=== PATIENT | female | born 1990 | race Hispanic/Latino ===

== ENCOUNTER 2021-02-24 17:39 | Emergency (ER) | payer OTHER, SELFPAY ==
--- OUTSIDE RECORDS SUMMARY | 2021-02-24 17:42 | XMS REPORT | Continuity of Care Document ---
:1990 Author Organization [facility] t Address [address] [place] [address] [place] [id number] Care Team Providers Name Role Phone GAYLE GALVAN Attending Clinician Unavailable Problems This patient has no known problems. Allergies, Adverse Reactions, Alerts Allergy Allergy Status Severity Reaction(s) Onset Inactive Treating Comm ents Source Name Type Date Date Clinician NO KNOWN Drug Active [facility] ALLERGIE Class [facility] Medications This patient has no known medications. Procedures This patient has no known procedures. Encounters Start End Encounter Admission Attending Care Care Encounter Source Date/Time Date/Time Type Type Clinicians Facility Department ID 2020-01-30 2020-01-30 Outpatient R [facility] [id number] [facility] 09:20:00 09:20:00 [id number] [facility] 2020-01-30 2020-01-30 Outpatient R [facility] [id number] [facility] 09:20:00 09:20:00 GAYLE [facility] Results This patient has no known results.
[2021-02-24 19:10] LABS: SARS-COV-2 RT PCR NEGATIVE (NEGATIVE)
--- NOTE | 2021-02-24 19:53 | ER ---
Nurse's Notes [facility] Name: Matt Chang Age: 30 yrs Sex: Female : 1990 Arrival Date: 02/24/2021 Time: 17:40 Bed Waiting Private MD: Diagnosis: Viral Syndrome Presentation: 02/24 17:41 Chief complaint: Patient states: PT COMPLAINS OF SEVERE HEADACHE STARTING TODAY. iw 17:41 Method Of Arrival: Ambulatory iw 17:41 Acuity: XAVI 4 iw Triage Assessment: 17:42 Headache History: Denies prior headaches. General: Appears in no apparent distress. iw Historical: - Allergies: 17:44 No Known Allergies; iw Vital Signs: 17:42 BP 110 / 75; Pulse 71; Resp 16; Temp 98.2; Pulse Ox 98% on R/A; Weight 45.81 kg; Height iw 4 ft. 11 in. (149.86 cm); Pain 6/10; 17:42 Body Mass Index 20.40 (45.81 kg, 149.86 cm) iw ED Course: 17:40 Patient arrived in ED. mr 17:42 Triage completed. iw 18:47 COVID-19/FLU A+B (Document "Date of Onset" if Symptomatic) Sent. [facility] 19:18 [facility] 19:18 Franck Jon MD is Attending Physician. erin Administered Medications: 19:57 Not Given (Patient Refused): NS 0.9% 1000 ml IV at 1 bolus Per protocol; 1000 mL bolus iw 19:57 Not Given (Patient Refused): Reglan (metoCLOPramide) 20 mg IVP once; put in bolus iw 19:57 Not Given (Patient Refused): Tylenol 1000 mg PO once iw 19:57 Not Given (Patient Refused): Ondansetron 4 mg PO once iw Outcome: 19:52 Discharge ordered by . erin 19:58 Discharged to home ambulatory, with family. iw 19:58 Condition: good 19:58 Discharge instructions given to patient, Instructed on discharge instructions, follow up and referral plans. medication usage, Demonstrated understanding of instructions, follow-up care, medications, Prescriptions given X 1. 19:58 Patient left the ED. iw Signatures: Remi Alexander PA PA jmm Rivera, Mary mr Williams, Irene, RN RN roland Chang, Eva 3
--- NOTE | 2021-02-24 19:54 | EDPHYS ---
Physician Documentation [facility] Name: Matt Chang Age: 30 yrs Sex: Female : 1990 Arrival Date: 02/24/2021 Time: 17:40 Bed Waiting Private MD: ED Physician Franck Jon HPI: 02/24 17:45 This 30 yrs old Female presents to ER via Ambulatory with complaints of jmm Headache, Vomiting. 17:45 The patient complains of pain to the forehead, right eye, nose, left eye, right gnosticism jmm and left gnosticism. Onset: The symptoms/episode began/occurred gradually, today. Associated signs and symptoms: Pertinent positives: fever, vomiting. The symptoms are alleviated by nothing. the symptoms are aggravated by nothing. It is unknown whether or not the patient has had similar symptoms in the past. Historical: - Allergies: 17:44 No Known Allergies; iw ROS: 17:45 Constitutional: Positive for body aches, chills. [facility] 17:45 Respiratory: Positive for cough. 17:45 All other systems are negative. Exam: 17:45 Constitutional: This is a well developed, well nourished patient who is awake, alert, jmm and in no acute distress. Head/Face: atraumatic. Eyes: EOMI, no conjunctival erythema appreciated ENT: Moist Mucus Membranes Neck: Trachea midline, Supple Chest/axilla: Normal chest wall appearance and motion. Cardiovascular: Regular rate and rhythm. No edema appreciated Respiratory: Normal respirations, no respiratory distress appreciated Abdomen/GI: Non distended, soft Back: Normal ROM Skin: General appearance color normal MS/ Extremity: Moves all extremities, no obvious deformities appreciated, no edema noted to the lower extremities Neuro: Awake and alert, normal gait Psych: Behavior is normal, Mood is normal, Patient is cooperative and pleasant Vital Signs: 17:42 BP 110 / 75; Pulse 71; Resp 16; Temp 98.2; Pulse Ox 98% on R/A; Weight 45.81 kg; Height iw 4 ft. 11 in. (149.86 cm); Pain 6/10; 17:42 Body Mass Index 20.40 (45.81 kg, 149.86 cm) iw MDM: 19:41 Patient medically screened. [facility] 19:52 Data reviewed: vital signs, nurses notes. Counseling: I had a detailed discussion with [facility] the patient and/or guardian regarding: the historical points, exam findings, and any diagnostic results supporting the discharge/admit diagnosis, lab results, the need for outpatient follow up, to return to the emergency department if symptoms worsen or persist or if there are any questions or concerns that arise at home. Refusal of service: The patient/guardian displays adequate decision making capability and despite a detailed discussion of alternatives, benefits, risks, and consequences refuses: CT Scan. 02/24 17:45 Order name: COVID-19/FLU A+B (Document "Date of Onset" if Symptomatic) iw 02/24 17:45 Order name: COVID-19/FLU A+B; Complete Time: 19:18 EDMS Administered Medications: 19:57 Not Given (Patient Refused): NS 0.9% 1000 ml IV at 1 bolus Per protocol; 1000 mL bolus iw 19:57 Not Given (Patient Refused): Reglan (metoCLOPramide) 20 mg IVP once; put in bolus iw 19:57 Not Given (Patient Refused): Tylenol 1000 mg PO once iw 19:57 Not Given (Patient Refused): Ondansetron 4 mg PO once iw Disposition: 20:40 Co-signature as Attending Physician, Franck Jon MD. [email or web address] Disposition Summary: 02/24/21 19:52 Discharge Ordered Location: Home [facility] Condition: Stable [facility] Diagnosis - Viral Syndrome [facility] Followup: [facility] - With: Private Physician - When: 2 - 3 days - Reason: Recheck today's complaints, Continuance of care, Re-evaluation by your physician Discharge Instructions: - Discharge Summary Sheet [facility] - General Headache Without Cause [facility] Forms: - Medication Reconciliation Form [facility] - Thank You Letter [facility] - Work release form [facility] - Antibiotic Education [facility] - Prescription Opioid Use [facility] Prescriptions: - ondansetron 4 mg Oral tablet,disintegrating - take 1 tablet by ORAL route every 8 hours As needed; 30 tablet; Refills: 0, [facility] Product Selection Permitted Signatures: Dispatcher [employer] EDMS Remi Alexander PA PA jmm Williams, Irene, GABRIEL RN Franck Cabello MD MD [email or web address] Corrections: (The following items were deleted from the chart) 19:57 19:19 IV Saline Lock ordered. [facility]
[2021-02-24 20:05] VITALS: BP 110/75; TEMP 98.2; O2SAT 98
== END 2021-02-24 19:58 | disposition home or self-care (01) ==
LOC: ER 17:39
DX: B34.9 Viral infection, unspecified (principal); Z20.822 Contact with and (suspected) exposure to COVID-19
CPT/HCPCS: 0240U; 99283

== ENCOUNTER 2021-09-05 14:15 | Emergency (ER) | payer SELFPAY ==
[2021-09-05] MEDS ORDERED: ONDANSETRON 4 MG (ODT) TAB ONE (14:35)
[2021-09-05] MEDS ORDERED: ACETAMINOPHEN 500 MG TAB ONE (14:36)
[2021-09-05] MEDS ORDERED: KETOROLAC 30 MG/ML INJ ONE (14:54)
[2021-09-05] MEDS ORDERED: ONDANSETRON 4 MG/2 ML VIAL ONE (14:54)
[2021-09-05] MEDS ORDERED: FAMOTIDINE 20 MG/2 ML VIAL IV ONE (14:55)
[2021-09-05] MEDS ORDERED: NA CHLORIDE 0.9% 1,000 ML ONE (14:55)
[2021-09-05 15:07] LABS: Urine Blood Negative (Negative); Urine Glucose Negative (Negative); Urine Protein 1+ (Negative); Urine pH 8.5 (5.0-7.0)
[2021-09-05 15:08] LABS: Absolute Lymphocytes (CBC) 0.2 K/uL (0.7-4.9); Hematocrit 39.2 % (36.0-45.0); Lymphocytes % 3.4 % (15.3-44.8); MCV 89.6 fL (80-100); MPV 9.6 fL (7.6-11.3); RBC Red Blood Cell Count 4.38 M/uL (3.86-4.86)
[2021-09-05 15:24] LABS: Albumin 3.9 g/dL (3.4-5.0); Bilirubin Total 0.3 mg/dL (0.2-1.0); Potassium 3.5 mmol/L (3.5-5.1)
[2021-09-05] MEDS ORDERED: METOCLOPRAMIDE 10 MG/2mL INJ ONE (16:32)
[2021-09-05 16:44] LABS: Urine Bacteria <20 /HPF (<20)
[2021-09-05 16:45] LABS: Urine Mucus 3+ /HPF (None Seen); Urine RBC <5 /HPF (None Seen)
--- NOTE | 2021-09-05 16:58 | RAD REPORT ---
EXAM DESCRIPTION: CTAbdomen Pelvis W Contrast - 09/05/2021 4:43 pm CLINICAL HISTORY: Abdominal pain. Nausea/vomiting COMPARISON: Abdomen Pelvis W Contrast dated 08/07/2015 TECHNIQUE: Biphasic CT imaging of the abdomen and pelvis was performed with 100 ml non-ionic IV cont rast. All CT scans are performed using dose optimization technique as appropriate and may include automated exposure control or mA/KV adjustment according to patient size. FINDINGS: The lung bases are clear. The liver, spleen, pancreas, adrenal glands and kidneys are within normal limits. No bowel obstruction, free air, free fluid or abscess. The appendix is normal. No evidence of signi ficant lymphadenopathy. No suspicious bony findings. IUD is present in the uterus. IMPRESSION: No acute intra-abdominal or pelvic finding.
--- NOTE | 2021-09-05 17:25 | EDPHYS ---
Physician Documentation [facility] Name: Matt Chang Age: 30 yrs Sex: Female : 1990 Arrival Date: 09/05/2021 Time: 14:16 Bed 11 Private MD: ED Physician Jorge Scott HPI: 09/05 14:33 This 30 yrs old Female presents to ER via Ambulatory with complaints of Fever. cp 14:33 The patient reports fever, not measured (subjective). Onset: The symptoms/episode cp began/occurred this morning. 14:33 Associated signs and symptoms: Pertinent positives: backache, headache, nausea, cp vomiting, body aches, Pertinent negatives: altered mental status, cough, diarrhea. Severity of symptoms: in the emergency department the symptoms are unchanged despite home interventions. CLIENT SERVICES ADMINISTRATOR: 14:44 LMP N/A - control method ld1 Historical: - Allergies: 14:44 No Known Allergies; ld1 - Home Meds: 14:44 None [Active]; ld1 - PMHx: 14:44 None; ld1 - PSHx: 14:44 None; ld1 - Immunization history:: Adult Immunizations up to date, Client reports receiving the 2nd dose of the Covid vaccine. - Social history:: Smoking status: Patient denies any tobacco usage or history of. Patient/guardian denies using alcohol. ROS: 14:40 Constitutional: Positive for body aches, Negative for fever. cp 14:40 Eyes: Negative for injury, pain, redness, and discharge. cp 14:40 ENT: Negative for drainage from ear(s), ear pain, sore throat, difficulty swallowing, difficulty handling secretions. 14:40 Cardiovascular: Negative for chest pain. 14:40 Respiratory: Negative for cough, shortness of breath, wheezing. 14:40 Abdomen/GI: Positive for abdominal pain, nausea and vomiting, Negative for diarrhea, constipation, hematemesis. 14:40 Skin: Negative for rash. 14:40 Neuro: Positive for headache, weakness, Negative for altered mental status. 14:40 All other systems are negative. Exam: 14:43 Constitutional: The patient appears in no acute distress, alert, awake, non-toxic, well cp developed, well nourished, uncomfortable. 14:43 Head/Face: Normocephalic, atraumatic. cp 14:43 Eyes: Periorbital structures: appear normal, Pupils: equal, round, and reactive to light and accomodation, Extraocular movements: intact throughout, Conjunctiva: normal, no exudate, no injection, Sclera: no appreciated abnormality, Lids and lashes: appear normal, bilaterally. 14:43 ENT: External ear(s): are unremarkable, Nose: is normal, Mouth: Lips: moist, Oral mucosa: pink and intact, moist, Posterior pharynx: Airway: no evidence of obstruction, patent. 14:43 Neck: ROM/movement: is normal, is supple, without pain, no range of motions limitations. 14:43 Chest/axilla: Inspection: normal, Palpation: is normal, no crepitus, no tenderness. 14:43 Cardiovascular: Rate: normal, Rhythm: regular, Edema: is not appreciated. 14:43 Respiratory: the patient does not display signs of respiratory distress, Respirations: normal, no use of accessory muscles, no retractions, labored breathing, is not present, Breath sounds: are clear throughout, no decreased breath sounds, no stridor, no wheezing. 14:43 Abdomen/GI: Inspection: abdomen appears normal, Bowel sounds: active, all quadrants, Palpation: soft, in all quadrants, mild abdominal tenderness, in all quadrants, rebound tenderness, is not appreciated, voluntary guarding, is not appreciated, involuntary guarding, is not appreciated. 14:43 Back: CVA tenderness, is noted bilaterally. 14:43 Skin: no rash present. 14:43 Neuro: Orientation: to person, place \\T\\ time. Mentation: is normal, Motor: moves all fours, strength is normal, Sensation: is normal. Vital Signs: 14:36 BP 109 / 74; Pulse 94; Resp 18; Temp 99.5(O); Pulse Ox 98% on R/A; Weight 49.9 kg; ld1 Height 4 ft. 9 in. (144.78 cm); Pain 8/10; 16:29 BP 104 / 68; Pulse 94; Resp 18; Pulse Ox 98% on R/A; ld1 14:36 Body Mass Index 23.80 (49.90 kg, 144.78 cm) ld1 MDM: 14:28 Patient medically screened. cp 15:00 Differential diagnosis: viral Infection, bacterial infection, URI, bronchitis, cp pneumonia UTI, gastroenteritis, meningitis. 17:24 Data reviewed: vital signs, nurses notes, lab test result(s), radiologic studies, CT cp scan. 17:24 Counseling: I had a detailed discussion with the patient and/or guardian regarding: the cp historical points, exam findings, and any diagnostic results supporting the discharge/admit diagnosis, lab results, radiology results, to return to the emergency department if symptoms worsen or persist or if there are any questions or concerns that arise at home. Response to treatment: the patient's symptoms have markedly improved after treatment, and as a result, I will discharge patient. 09/05 14:27 Order name: COVID-19 SARS RT PCR (Document "Date of Onset" if Symptomatic); Complete ld1 Time: 16:50 09/05 16:50 Interpretation: Reviewed. 09/05 14:27 Order name: Flu; Complete Time: 15:43 ld1 09/05 15:44 Interpretation: Reviewed. 09/05 14:38 Order name: CBC with Diff; Complete Time: 15:43 09/05 15:43 Interpretation: Normal except: MCV 89.6; PLT 124; MARK% 86.9; LYM% 3.4; LYMA 0.2. 09/05 14:38 Order name: CMP; Complete Time: 15:43 09/05 15:43 Interpretation: Normal except: NA 135; AST 84; ALT 100; GLOB 4.1; A/G 1.0. 09/05 14:38 Order name: Lipase; Complete Time: 15:43 09/05 15:44 Interpretation: Abnormal: LIP 65. 09/05 14:38 Order name: Urine Microscopic Only; Complete Time: 16:50 cp 09/05 16:50 Interpretation: Normal except: MUCUS 3+. 09/05 15:08 Order name: Urine Dipstick-Ancillary; Complete Time: 15:43 EDMS 09/05 15:34 Order name: Urine --Ancillary (enter results); Complete Time: 16:50 eb 09/05 15:45 Order name: CT Abd/Pelvis - IV Contrast Only; Complete Time: 17:02 cp 09/05 17:02 Interpretation: Report reviewed. 09/05 14:38 Order name: IV Saline Lock; Complete Time: 14:46 09/05 14:38 Order name: Labs collected and sent; Complete Time: 15:03 cp 09/05 14:38 Order name: Urine Dipstick-Ancillary (obtain specimen); Complete Time: 14:46 cp 09/05 14:38 Order name: Urine Test (obtain specimen); Complete Time: 15:03 cp 09/05 17:03 Order name: PO challenge; Complete Time: 17:04 cp Administered Medications: 14:27 CANCELLED (Other Intervention Used): Tylenol 15 mg/kg Feeding Tube once; not to exceed ld1 1,000 milligrams 14:35 Drug: Ondansetron 4 mg Route: PO; ld1 14:35 Drug: Tylenol 1000 mg Route: PO; ld1 15:02 Drug: Pepcid (famotidine) 20 mg Route: IVP; Site: right upper arm; ld1 15:02 Drug: Ketorolac 15 mg Route: IVP; Site: right upper arm; ld1 15:02 Drug: NS 0.9% 500 ml Route: IV; Rate: bolus; Site: right upper arm; ld1 15:02 Drug: NS 0.9% 500 ml Route: IV; Rate: 125 ml/hr; Site: right upper arm; ld1 16:28 Drug: Reglan (metoCLOPramide) 10 mg Route: IVP; Site: right upper arm; ld1 Disposition: 18:02 Attestation: The patient's history, exam findings, diagnostics, and a summary of any [facility] interventions or procedures was reviewed in detail with Servando العراقي. Disposition Summary: 09/05/21 17:24 Discharge Ordered Location: Home cp Problem: new cp Symptoms: have improved cp Condition: Stable cp Diagnosis - Nausea with vomiting, unspecified cp - SARS-associated coronavirus as the cause of diseases classified elsewhere cp Followup: cp - With: Private Physician - When: 2 - 3 days - Reason: Worsening of condition Discharge Instructions: - Discharge Summary Sheet cp - Nausea and Vomiting, Adult cp - Aspirin and Your Heart cp - Form - Excuse from Work, School, or Physical Activity cp - COVID-19 cp - COVID-19: What Your Test Results Mean - [facility] cp - Things to Know about the COVID-19 Pandemic - [facility] cp - 10 Things You Can Do to Manage Your COVID-19 Symptoms at Home - [facility] cp - COVID-19: Quarantine vs. Isolation - [facility] cp - Prevent the Spread of COVID-19 if You Are Sick - [facility] cp Forms: - Medication Reconciliation Form cp - Work release form iw - Thank You Letter cp - Antibiotic Education cp - Prescription Opioid Use cp Prescriptions: - Zofran 4 mg Oral Tablet - take 1 tablet by ORAL route every 12 hours As needed; 20 tablet; Refills: 0, cp Product Selection Permitted - Ibuprofen 800 mg Oral Tablet - take 0.5 tablet by ORAL route every 8 hours As needed take with food; 30 cp tablet; Refills: 0, Product Selection Permitted Signatures: Dispatcher [employer] EDMS Servando Castellano PA PA cp Carmen Little RN RN ld1 Jorge Scott MD MD [email or web address] Corrections: (The following items were deleted from the chart) 14:27 14:27 Tylenol 15 mg/kg Feeding Tube once; not to exceed 1,000 milligrams ordered. ld1 ld1 15:43 15:43 Normal except: NA 135. cp cp 09/06 14:42 09/05 14:33 Associated signs and symptoms: Pertinent positives: backache, headache, cp nausea, body aches, Pertinent negatives: altered mental status, cough, diarrhea, cp
--- NOTE | 2021-09-05 17:25 | ER ---
Nurse's Notes [facility] Name: Matt Chang Age: 30 yrs Sex: Female : 1990 Arrival Date: 09/05/2021 Time: 14:16 Bed 11 Private MD: Diagnosis: Nausea with vomiting, unspecified;SARS-associated coronavirus as the cause of diseases classified elsewhere Presentation: 09/05 14:36 Chief complaint: Patient states: Body aches, fever, N/V since 0600 this morning. Pt ld1 reports taking tylenol at 0630am. Coronavirus screen: Client presents with at least one sign or symptom that may indicate coronavirus-19. Standard/surgical mask placed on the client. Ebola Screen: No symptoms or risks identified at this time. Initial Sepsis Screen: Does the patient meet any 2 criteria? No. Patient's initial sepsis screen is negative. Does the patient have a suspected source of infection? No. Patient's initial sepsis screen is negative. Risk Assessment: Do you want to hurt yourself or someone else? Patient reports no desire to harm self or others. Onset of symptoms was September 05, 2021. 14:36 Method Of Arrival: Ambulatory ld1 14:36 Acuity: XAVI 3 ld1 Triage Assessment: 14:44 General: Appears in no apparent distress. uncomfortable, Behavior is calm, cooperative, ld1 appropriate for age. Pain: Complains of pain in all overy body Pain does not radiate. Pain currently is 10 out of 10 on a pain scale. EENT: No signs and/or symptoms were reported regarding the EENT system. Neuro: Level of Consciousness is awake, alert, obeys commands, Oriented to person, place, time, situation. Cardiovascular: Capillary refill < 3 seconds Patient's skin is warm and dry. Respiratory: Airway is patent Respiratory effort is even, unlabored. GI: Abdomen is flat, non-distended, Reports nausea, vomiting. : No signs and/or symptoms were reported regarding the genitourinary system. Derm: No signs and/or symptoms reported regarding the dermatologic system. Musculoskeletal: No signs and/or symptoms reported regarding the musculoskeletal system. MANAGER SECONDARY: 14:44 LMP N/A - control method ld1 Historical: - Allergies: 14:44 No Known Allergies; ld1 - Home Meds: 14:44 None [Active]; ld1 - PMHx: 14:44 None; ld1 - PSHx: 14:44 None; ld1 - Immunization history:: Adult Immunizations up to date, Client reports receiving the 2nd dose of the Covid vaccine. - Social history:: Smoking status: Patient denies any tobacco usage or history of. Patient/guardian denies using alcohol. Screenin:45 Abuse screen: Denies threats or abuse. Denies injuries from another. Nutritional ld1 screening: No deficits noted. Tuberculosis screening: No symptoms or risk factors identified. Fall Risk None identified. Assessment: 14:45 Reassessment: See triage assessment. ld1 Vital Signs: 14:36 BP 109 / 74; Pulse 94; Resp 18; Temp 99.5(O); Pulse Ox 98% on R/A; Weight 49.9 kg; ld1 Height 4 ft. 9 in. (144.78 cm); Pain 8/10; 16:29 BP 104 / 68; Pulse 94; Resp 18; Pulse Ox 98% on R/A; ld1 14:36 Body Mass Index 23.80 (49.90 kg, 144.78 cm) ld1 ED Course: 14:16 Patient arrived in ED. am2 14:26 Carmen Little, GABRIEL is Primary Nurse. ld1 14:27 Servando Castellano PA is PHCP. cp 14:27 Jorge Scott MD is Attending Physician. cp 14:35 Flu Sent. ld1 14:35 COVID-19 SARS RT PCR (Document "Date of Onset" if Symptomatic) Sent. ld1 14:44 Triage completed. ld1 14:44 Arm band placed on right wrist. ld1 14:45 No provider procedures requiring assistance completed. ld1 14:45 Patient has correct armband on for positive identification. Placed in gown. Bed in low ld1 position. Call light in reach. Side rails up X2. monitor car operator on. Pulse ox on. NIBP on. Door closed. Noise minimized. Warm blanket given. 15:03 Urine Microscopic Only Sent. ld1 15:03 Inserted saline lock: 20 gauge in right upper arm, using aseptic technique. Blood ld1 collected. 16:44 CT Abd/Pelvis - IV Contrast Only In Process Unspecified. EDMS 17:37 IV discontinued, intact, bleeding controlled, No redness/swelling at site. ld1 Administered Medications: 14:27 CANCELLED (Other Intervention Used): Tylenol 15 mg/kg Feeding Tube once; not to exceed ld1 1,000 milligrams 14:35 Drug: Ondansetron 4 mg Route: PO; ld1 14:35 Drug: Tylenol 1000 mg Route: PO; ld1 15:02 Drug: Pepcid (famotidine) 20 mg Route: IVP; Site: right upper arm; ld1 15:02 Drug: Ketorolac 15 mg Route: IVP; Site: right upper arm; ld1 15:02 Drug: NS 0.9% 500 ml Route: IV; Rate: bolus; Site: right upper arm; ld1 15:02 Drug: NS 0.9% 500 ml Route: IV; Rate: 125 ml/hr; Site: right upper arm; ld1 16:28 Drug: Reglan (metoCLOPramide) 10 mg Route: IVP; Site: right upper arm; ld1 Medication: 14:45 VIS not applicable for this client. ld1 Outcome: 17:24 Discharge ordered by . natty 17:37 Discharged to home ambulatory, with family. ld1 17:37 Condition: improved 17:37 Discharge instructions given to patient, family, Instructed on discharge instructions, follow up and referral plans. medication usage, Demonstrated understanding of instructions, follow-up care, medications, Prescriptions given X 2. 17:38 Patient left the ED. ld1 Signatures: Dispatcher [employer] EDMS Servando Castellano PA PA cp Moreno, Amanda Carmen Burroughs, RN RN ld1
[2021-09-05 18:05] VITALS: TEMP 99.5; O2SAT 98
[2021-09-05 18:11] VITALS: BP 104/68
== END 2021-09-05 17:38 | disposition home or self-care (01) ==
LOC: ER 14:15
DX: U07.1 COVID-19 (principal)
CPT/HCPCS: 36415; 74177; 80053; 81003; 81015; 81025; 83690; 85025; 87804; 96374; 96375; 99284; J2405; J2765; J3490; J7030; Q0162; Q9967; U0003

== ENCOUNTER 2024-02-11 19:13 | Emergency (ER) | payer SELFPAY ==
--- OUTSIDE RECORDS SUMMARY | 2024-02-11 19:16 | XMS REPORT | Continuity of Care Document ---
Author Name Unknown Address [address] [facility] th[address] Address [address] [facility] [address] [place] [address] Care Team Providers Care Auto Specialty Services Manager Name Role Phone GAYLE GALVAN Attending Clinician Unavailable Allergies, Adverse Reactions, Alerts Allergy Name Allergy Type Status Severity Reaction(s) Onset Date Inactive Date Treating Clinician Comments Source NO KNOWN ALLERGIE S Drug Class [facility] Start Date/Time End Date/Time Encounter Type Admission Type Attending Clinicians Care Facility Care Department Encounter ID Source 2023-04-30 08:43:52 2023-04-30 08:43:52 Outpatient [facility] [id number] Yahir Engel 2020-01-30 09:20:00 2020-01-30 09:20:00 Outpatient GAYLE [id number]
--- NOTE | 2024-02-11 19:40 | EDPHYS ---
Physician Documentation [facility] Name: Matt Chang Age: 33 yrs Sex: Female : 1990 Arrival Date: 02/11/2024 Time: 19:13 Bed DX3 Private MD: ED Physician Annie Martinez HPI: 02/10 19:37 This 33 yrs old Female presents to ER via Ambulatory with complaints of sp3 Toothache. 19:37 33-year-old female with no past medical history presents with toothache right side sp3 maxilla since yesterday evening. Patient states she smells of foul odor coming from that area as well. Patient does not have a regular dentist. She denies fever, headache, neck pain, chest pain, shortness of breath or any other signs or symptoms on ROS at this time.. CLERICAL SUPPORT SPECIALIST: 19:17 LMP N/A - control method, Not tm6 Historical: - Allergies: 19:19 No Known Allergies; tm6 - PMHx: 19:19 None; tm6 - PSHx: 19:19 None; tm6 - Immunization history:: Flu vaccine is up to date. - Infectious Disease History:: Denies. - Social history:: Smoking status: Patient/guardian denies using tobacco, the patient reports quitting approximately 1 years ago. ROS: 19:38 Constitutional: Negative for fever, chills, and weight loss, Eyes: Negative for injury, sp3 pain, redness, and discharge, Neck: Negative for injury, pain, and swelling, Cardiovascular: Negative for chest pain, palpitations, and edema, Respiratory: Negative for shortness of breath, cough, wheezing, and pleuritic chest pain, Abdomen/GI: Negative for abdominal pain, nausea, vomiting, diarrhea, and constipation, Back: Negative for injury and pain, MS/Extremity: Negative for injury and deformity, Skin: Negative for injury, rash, and discoloration, Neuro: Negative for headache, weakness, numbness, tingling, and seizure, Psych: Negative for depression, anxiety, suicide ideation, homicidal ideation, and hallucinations, Allergy/Immunology: Negative for hives, rash, and allergies, Endocrine: Negative for neck swelling, polydipsia, polyuria, polyphagia, and marked weight changes, 19:38 All other systems are negative, Exam: 19:38 Constitutional: This is a well developed, well nourished patient who is awake, alert, sp3 and in no acute distress. Head/Face: Normocephalic, atraumatic. Eyes: Pupils equal round and reactive to light, extra-ocular motions intact. Lids and lashes normal. Conjunctiva and sclera are non-icteric and not injected. Cornea within normal limits. Periorbital areas with no swelling, redness, or edema. Neck: Trachea midline, no thyromegaly or masses palpated, and no cervical lymphadenopathy. Supple, full range of motion without nuchal rigidity, or vertebral point tenderness. No Meningismus. Chest/axilla: Normal chest wall appearance and motion. Nontender with no deformity. No lesions are appreciated. Cardiovascular: Regular rate and rhythm with a normal S1 and S2. No gallops, murmurs, or rubs. Normal PMI, no JVD. No pulse deficits. Respiratory: Lungs have equal breath sounds bilaterally, clear to auscultation and percussion. No rales, rhonchi or wheezes noted. No increased work of breathing, no retractions or nasal flaring. Abdomen/GI: Soft, non-tender, with normal bowel sounds. No distension or tympany. No guarding or rebound. No evidence of tenderness throughout. 19:38 ENT: Poor dentition overall with marked swelling in the right maxilla at the gum and dentition.. Vital Signs: 19:17 BP 138 / 90; Pulse 61; Resp 19; Temp 99(TE); Pulse Ox 99% on R/A; MAP 104 mmHg; Weight tm6 45.36 kg; Height 4 ft. 9 in. ; Pain 9/10; 19:17 Body Mass Index 21.64 (45.36 kg, 144.78 cm) tm6 19:17 Pain Scale: Adult tm6 MDM: 19:28 Medical Screening Exam initiated sp3 19:38 Data reviewed: vital signs, nurses notes. ED course: Differential diagnosis includes to sp3 take versus dental infection versus tooth abscess. Will treat with Augmentin and [place] in the ED and discharged on NSAID and Augmentin for outpatient dentistry follow-up.. Administered Medications: 19:54 Drug: Amoxicillin-Clavulanate PO 875 mg PO once Route: PO; tm6 19:58 Follow up: Response: Medication administered at discharge. tm6 19:54 Drug: [place] PO 5 mg-325 mg 2 tabs PO once Route: PO; tm6 19:58 Follow up: Response: Medication administered at discharge. tm6 Disposition Summary: 02/11/24 19:39 Discharge Ordered Notes: Location: Home sp3 Condition: Stable sp3 Diagnosis - Dental infection, toothache sp3 Followup: sp3 - With: Private Physician - When: Upon discharge from the Emergency Department - Reason: Continuance of care Discharge Instructions: - Discharge Summary Sheet sp3 - Dental Abscess sp3 Forms: - Medication Reconciliation Form sp3 - Antibiotic Education sp3 - Prescription Opioid Use sp3 - Patient Portal Instructions sp3 - Leadership Thank You Letter sp3 - Work release form tm6 Prescriptions: - Augmentin 875-125 mg Oral Tablet - take 1 tablet ORAL route every 12 hours for 10 days; 20 tablet; Refills: 0, sp3 Product Selection Permitted - Diclofenac Sodium 75 mg Oral Tablet Sustained Release - take 1 tablet ORAL route 2 times per day; 30 tablet; Refills: 0, Product sp3 Selection Permitted Signatures: Annie Martinez MD MD sp3 Ivory Coleman RN RN tm6
--- NOTE | 2024-02-11 19:40 | ER ---
Nurse's Notes [facility] Name: Matt Chang Age: 33 yrs Sex: Female : 1990 Arrival Date: 02/11/2024 Time: 19:13 Bed DX3 Private MD: Diagnosis: Dental infection, toothache Presentation: 02/10 19:19 Chief complaint: Patient states: tooth on right top side started hurting last night, I tm6 took tylenol. This morning the pain just got worse and worse. 9/10 pain. Coronavirus screen: Client denies travel out of the [place] in the last 14 days. Ebola Screen: Patient negative for fever greater than or equal to 101.5 degrees Fahrenheit, and additional compatible Ebola Virus Disease symptoms Patient denies exposure to infectious person. Patient denies travel to an Ebola-affected area in the 21 days before illness onset. No symptoms or risks identified at this time. Initial Sepsis Screen: Does the patient meet any 2 criteria? No. Patient's initial sepsis screen is negative. Does the patient have a suspected source of infection? No. Patient's initial sepsis screen is negative. Risk Assessment: Do you want to hurt yourself or someone else? Patient reports no desire to harm self or others. Onset of symptoms was February 11, 2024. 19:19 Method Of Arrival: Ambulatory tm6 19:19 Acuity: XAVI 4 tm6 Triage Assessment: 19:19 General: Appears distressed, uncomfortable, Behavior is cooperative. Pain: Complains of tm6 pain in mouth Pain currently is 9 out of 10 on a pain scale. Quality of pain is described as aching, throbbing, Pain began 1 day ago. EENT: Reports pain in mouth Pain is 9 out of 10 on a pain scale. since last night. Neuro: Level of Consciousness is awake, alert, obeys commands, Oriented to person, place, time, situation. Cardiovascular: Patient's skin is warm and dry. Respiratory: Airway is patent Respiratory effort is even, unlabored, Respiratory pattern is regular, symmetrical. GI: No signs and/or symptoms were reported involving the gastrointestinal system. Abdomen is flat, non-distended. : No signs and/or symptoms were reported regarding the genitourinary system. Derm: No signs and/or symptoms reported regarding the dermatologic system. Musculoskeletal: No signs and/or symptoms reported regarding the musculoskeletal system. MANAGER HVAC: 19:17 LMP N/A - control method, Not tm6 Historical: - Allergies: 19:19 No Known Allergies; tm6 - PMHx: 19:19 None; tm6 - PSHx: 19:19 None; tm6 - Immunization history:: Flu vaccine is up to date. - Infectious Disease History:: Denies. - Social history:: Smoking status: Patient/guardian denies using tobacco, the patient reports quitting approximately 1 years ago. Screenin:56 [facility] ED Fall Risk Assessment (Adult) History of falling in the last 3 months, tm6 including since admission No falls in past 3 months (0 pts) Confusion or Disorientation No (0 pts) Intoxicated or Sedated No (0 pts) Impaired Gait No (0 pts) Mobility Assist Device Used No (0 pt) Altered Elimination No (0 pt) Score/Fall Risk Level 0 - 2 = Low Risk Oriented to surroundings, Maintained a safe environment, Educated pt \T\ family on fall prevention, incl call for assistance when getting out of bed. Abuse screen: Denies threats or abuse. Denies injuries from another. Nutritional screening: No deficits noted. Tuberculosis screening: No symptoms or risk factors identified. Assessment: 19:56 Reassessment: see triage assessment. tm6 Vital Signs: 19:17 BP 138 / 90; Pulse 61; Resp 19; Temp 99(TE); Pulse Ox 99% on R/A; MAP 104 mmHg; Weight tm6 45.36 kg; Height 4 ft. 9 in. ; Pain 9/10; 19:17 Body Mass Index 21.64 (45.36 kg, 144.78 cm) tm6 19:17 Pain Scale: Adult tm6 ED Course: 19:15 Patient arrived in ED. mr 19:19 Arm band placed on right wrist. tm6 19:20 Triage completed. tm6 19:27 Annie Martinez MD is Attending Physician. sp3 19:48 Ivory Coleman, GABRIEL is Primary Nurse. tm6 19:56 Patient has correct armband on for positive identification. Provided Education on: tm6 follow up with pcp, dentist. 19:56 No provider procedures requiring assistance completed. Patient did not have IV access tm6 during this emergency room visit. Administered Medications: 19:54 Drug: Amoxicillin-Clavulanate PO 875 mg PO once Route: PO; tm6 19:58 Follow up: Response: Medication administered at discharge. tm6 19:54 Drug: [place] PO 5 mg-325 mg 2 tabs PO once Route: PO; tm6 19:58 Follow up: Response: Medication administered at discharge. tm6 Medication: 19:56 VIS not applicable for this client. tm6 Outcome: 19:39 Discharge ordered by . sp3 19:56 Discharged to home ambulatory, with family, tm6 19:56 Condition: stable 19:56 Discharge instructions given to patient, Instructed on discharge instructions, follow up and referral plans. medication usage, Demonstrated understanding of instructions, follow-up care, medications, Prescriptions given X 2, 19:57 Patient left the ED. tm6 Signatures: Katie Mendoza Reg Reg mr Patel, Setul, MD MD sp3 Ivory Coleman RN RN tm6
[2024-02-11] MEDS ORDERED: AMOX/K CLAV 875 MG TAB ONE (19:50)
[2024-02-11] MEDS ORDERED: HYDROCODONE/APAP 5/325 MG TAB ONE (19:50)
[2024-02-11 20:35] VITALS: BP 138/90; TEMP 99; O2SAT 99
== END 2024-02-11 19:57 | disposition home or self-care (01) ==
LOC: ER 19:13
DX: K04.7 Periapical abscess without sinus (principal); Z87.891 Personal history of nicotine dependence
CPT/HCPCS: 99283